=== PATIENT | female | born 1965 | race Caucasian/White ===

== ENCOUNTER 2020-08-23 08:41 | Emergency (ER) | payer OTHER ==
[2020-08-23 08:50] VITALS: BP 142/88; PULSE 89
--- NOTE | 2020-08-23 08:57 | EDM.PDOC ---
ED HPI GENERAL MEDICAL PROBLEM - General Chief Complaint: Chest Pain Stated Complaint: CHEST PAIN Time Seen by Provider: 08/23/20 08:53 Source of Information: Reports: Patient History Limitations: Reports: No Limitations - History of Present Illness INITIAL COMMENTS - FREE TEXT/NARRATIVE: 54-year-old female presents to the ED complaining of central chest pain which is retrosternal and high up in the sternum. No associated burping or belching or awareness of recent reflux. She is a never smoker. Denies cough or sputum production. She had COVID-19 illness back in December 2019. Pain started this morning after getting ready for work and has been pretty persistent. She rates it as 6 out of 10. It is perhaps slightly worse with deep breathing. She has had no chest surgery. She has had previous cholecystectomy carried out. Denies fever chills nausea or vomiting. Onset: Today, Sudden Onset Date: 08/23/20 Onset Time: 07:45 Duration: Minutes:, Constant Location: Reports: Chest (Central upper retrosternal chest discomfort with no radiation to the neck throat or back.) Quality: Reports: Ache, Pressure Severity: Moderate Improves with: Reports: None (Etc. 10) Worsens with: Reports: None Context: Denies: Activity, Exercise, Lifting, Sick Contact, Trauma, Other Associated Symptoms: Reports: Chest Pain. Denies: No Other Symptoms, Confusion (See history of present illness), Cough, cough w sputum, Diaphoresis, Fever/Chills, Headaches, Loss of Appetite, Malaise, Nausea/Vomiting, Rash, Seizure, Shortness of Breath, Syncope, Weakness Middle Chest Pain Score (Numeric/FACES): 6 - Related Data Allergies Allergy/AdvReac Type Severity Reaction Status Date / Time cefixime [From Suprax] Allergy Hives Verified 06/04/16 07:38 ciprofloxacin [From Cipro] Allergy Hives Verified 06/04/16 07:38 Home Meds: Home Meds Levothyroxine [Synthroid] 100 mcg PO DAILY 06/03/16 [History] Cetirizine HCl [Zyrtec] 10 mg PO DAILY PRN 08/23/20 [History] ClonazePAM [KlonoPIN] 0.5 mg PO BEDTIME 08/23/20 [History] Escitalopram Oxalate [Lexapro] 15 mg PO DAILY 08/23/20 [History] Potassium Chloride 10 meq PO DAILY 08/23/20 [History] Venlafaxine [Venlafaxine HCl ER] 150 mg PO DAILY 08/23/20 [History] hydrOXYzine pamoate [Hydroxyzine Pamoate] 25 - 50 mg PO BEDTIME PRN 08/23/20 [History] hydroCHLOROthiazide [Hydrochlorothiazide] 25 mg PO BEDTIME 08/23/20 [History] Past Medical History HEENT History: Reports: Other (See Below) Other HEENT History: TMJ Cardiovascular History: Reports: None Respiratory History: Reports: None Gastrointestinal History: Reports: Inflammatory Bowel Disease Genitourinary History: Reports: None Other Musculoskeletal History: Left ankle fracture Neurological History: Reports: Headaches, Chronic Psychiatric History: Reports: Anxiety, Depression Endocrine/Metabolic History: Reports: Hypothyroidism Hematologic History: Reports: None Immunologic History: Reports: None Oncologic (Cancer) History: Reports: None - Past Surgical History Head Surgeries/Procedures: Reports: None HEENT Surgical History: Reports: None Cardiovascular Surgical History: Reports: None Respiratory Surgical History: Reports: None GI Surgical History: Reports: Cholecystectomy, Colonoscopy Female Surgical History: Reports: None Other Musculoskeletal Surgeries/Procedures:: ORIF Left ankle, Hardware removal left ankle Social & Family History - Living Situation & Occupation Occupation: Employed ED ROS GENERAL - Review of Systems Review Of Systems: See Below Constitutional: Denies: Fever, Chills, Malaise, Weakness, Fatigue, Decreased Appetite, Weight Loss HEENT: Reports: Glasses Respiratory: Reports: No Symptoms Cardiovascular: Reports: Chest Pain, Blood Pressure Problem. Denies: Claudication, Dyspnea on Exertion, Edema, Lightheadedness, Orthopnea, Palpitations Endocrine: Reports: No Symptoms, Fatigue, High Glucose, Low Glucose GI/Abdominal: Reports: No Symptoms, Other (Occasional reflux treated with Tums or Rolaids.) : Reports: No Symptoms Musculoskeletal: Reports: No Symptoms Skin: Reports: No Symptoms Neurological: Reports: No Symptoms Psychiatric: Reports: No Symptoms Hematologic/Lymphatic: Reports: No Symptoms Immunologic: Reports: No Symptoms ED EXAM, GENERAL - Physical Exam Exam: See Below Exam Limited By: No Limitations General Appearance: Alert, WD/WN, No Apparent Distress, Other (Temperature is 36.6 degrees. She does not feel warm to palpation. Heart rate is 89 and sinus. Respiratory is 18 with O2 sats of 98% room air BP is 142/88.) Eye Exam: Bilateral Eye: Normal Inspection, PERRL (No scleral icterus or blepharal pallor.) Throat/Mouth: Normal Inspection, Normal Lips, Normal Oropharynx Head: Atraumatic, Normocephalic Neck: Normal Inspection, Supple, Non-Tender, Full Range of Motion. No: Carotid Bruit, Lymphadenopathy (L), Lymphadenopathy (R) Respiratory/Chest: No Respiratory Distress, Lungs Clear, Normal Breath Sounds, No Accessory Muscle Use Cardiovascular: Normal Peripheral Pulses, Regular Rate, Rhythm, No Edema, No Gallop, No Murmur, No Rub Peripheral Pulses: 3+: Carotid (L), Carotid (R), Posterior Tibial (L), Posterior Tibial (R), Dorsalis Pedis (L), Dorsalis Pedis (R) GI/Abdominal: Normal Bowel Sounds, Soft, Non-Tender, No Organomegaly, No Mass, Pelvis Stable, Other (Previous laparoscopic cholecystectomy.) Back Exam: Normal Inspection, Full Range of Motion. No: CVA Tenderness (L), CVA Tenderness (R) Extremities: Normal Inspection, Normal Range of Motion, Non-Tender, No Pedal Edema Neurological: Alert, Oriented, CN II-XII Intact, Normal Cognition, Normal Gait Psychiatric: Normal Affect, Normal Mood Skin Exam: Warm, Dry, Intact, Normal Color, No Rash #1 Interpretation EKG Date: 08/23/20 Time: 08:47 Rhythm: NSR Rate (Beats/Min): 84 Sawyer: LAD-Left Sawyer Deviation (-50 degrees) P-Wave: Present QRS: Other (Decreased voltage in both limb and precordial leads. There is a near Q waves in lead III and Q-wave in aVF. Consider old inferior wall myocardial infarction) ST-T: Other (T wave flattening lead III nonspecific) QT: Prolonged (Mildly prolonged) EKG Interpretation Comments: Abnormal ECG with no signs of acute ischemia. Course - Vital Signs Last Recorded V/S: Last Vital Signs Temp 36.6 C 08/23/20 08:46 Pulse 89 08/23/20 08:46 Resp 18 08/23/20 08:46 BP 142/88 H 08/23/20 08:46 Pulse Ox 98 08/23/20 08:46 - Orders/Labs/Meds Orders: Active Orders 24 hr Category Date Time Status Sodium Chloride 0.9% [Normal Saline] 1,000 ml Med 08/23/20 09:00 Active IV ASDIRECTED Medication Orders Sodium Chloride (Normal Saline) 1,000 mls @ 100 mls/hr IV ASDIRECTED EMELINA Last Admin: 08/23/20 09:15 Dose: 100 mls/hr Documented by: [email or web address] Labs: Laboratory Tests 08/23/20 08/23/20 08/23/20 Range/Units 08:55 08:55 08:55 WBC 6.88 (3.98-10.04) K/mm3 RBC 4.77 (3.98-5.22) M/mm3 Hgb 14.5 (11.2-15.7) gm/dl Hct 43.6 (34.1-44.9) % MCV 91.4 (79.4-94.8) fl MCH 30.4 (25.6-32.2) pg MCHC 33.3 (32.2-35.5) g/dl RDW Std Deviation 46.9 H (36.4-46.3) fL Plt Count 267 (182-369) K/mm3 MPV 10.7 (9.4-12.3) fl Neut % (Auto) 53.1 (34.0-71.1) % Lymph % (Auto) 36.8 (19.3-51.7) % [place] % (Auto) 8.9 (4.7-12.5) % Eos % (Auto) 1.0 (0.7-5.8) Baso % (Auto) 0.1 (0.1-1.2) % Neut # (Auto) 3.65 (1.56-6.13) K/mm3 Lymph # (Auto) 2.53 (1.18-3.74) K/mm3 [place] # (Auto) 0.61 H (0.24-0.36) K/mm3 Eos # (Auto) 0.07 (0.04-0.36) K/mm3 Baso # (Auto) 0.01 (0.01-0.08) K/mm3 PT 10.3 (9.7-12.0) SECONDS INR 0.96 APTT 25.6 (21.7-31.4) SECONDS D-Dimer, Quantitative (0.19-0.50) mg/L Sodium 138 (136-145) mEq/L Potassium 4.1 (3.5-5.1) mEq/L Chloride 100 (98-107) mEq/L Carbon Dioxide 29 (21-32) mEq/L Anion Gap 13.1 (5-15) BUN 22 H (7-18) mg/dL Creatinine 1.2 H (0.55-1.02) mg/dL Est Cr Clr Drug Dosing 48.23 mL/min Estimated GFR (MDRD) 47 (>60) mL/min BUN/Creatinine Ratio 18.3 H (14-18) Glucose 120 H (74-106) mg/dL Calcium 8.6 (8.5-10.1) mg/dL Magnesium 1.8 (1.8-2.4) mg/dl Total Bilirubin 0.3 (0.2-1.0) mg/dL AST 23 (15-37) U/L ALT 36 (14-59) U/L Alkaline Phosphatase 84 (46-116) U/L CK-MB (CK-2) 0.7 (0-3.6) ng/ml Troponin I < 0.017 (0.00-0.056) ng/mL C-Reactive Protein 1.0 (<1.0) mg/dL NT-Pro-B Natriuret Pep (0-125) pg/mL Total Protein 7.7 (6.4-8.2) g/dl Albumin 3.3 L (3.4-5.0) g/dl Globulin 4.4 gm/dL Albumin/Globulin Ratio 0.8 L (1-2) 08/23/20 08/23/20 Range/Units 08:55 08:55 WBC (3.98-10.04) K/mm3 RBC (3.98-5.22) M/mm3 Hgb (11.2-15.7) gm/dl Hct (34.1-44.9) % MCV (79.4-94.8) fl MCH (25.6-32.2) pg MCHC (32.2-35.5) g/dl RDW Std Deviation (36.4-46.3) fL Plt Count (182-369) K/mm3 MPV (9.4-12.3) fl Neut % (Auto) (34.0-71.1) % Lymph % (Auto) (19.3-51.7) % [place] % (Auto) (4.7-12.5) % Eos % (Auto) (0.7-5.8) Baso % (Auto) (0.1-1.2) % Neut # (Auto) (1.56-6.13) K/mm3 Lymph # (Auto) (1.18-3.74) K/mm3 [place] # (Auto) (0.24-0.36) K/mm3 Eos # (Auto) (0.04-0.36) K/mm3 Baso # (Auto) (0.01-0.08) K/mm3 PT (9.7-12.0) SECONDS INR APTT (21.7-31.4) SECONDS D-Dimer, Quantitative 0.33 (0.19-0.50) mg/L Sodium (136-145) mEq/L Potassium (3.5-5.1) mEq/L Chloride (98-107) mEq/L Carbon Dioxide (21-32) mEq/L Anion Gap (5-15) BUN (7-18) mg/dL Creatinine (0.55-1.02) mg/dL Est Cr Clr Drug Dosing mL/min Estimated GFR (MDRD) (>60) mL/min BUN/Creatinine Ratio (14-18) Glucose (74-106) mg/dL Calcium (8.5-10.1) mg/dL Magnesium (1.8-2.4) mg/dl Total Bilirubin (0.2-1.0) mg/dL AST (15-37) U/L ALT (14-59) U/L Alkaline Phosphatase (46-116) U/L CK-MB (CK-2) (0-3.6) ng/ml Troponin I (0.00-0.056) ng/mL C-Reactive Protein (<1.0) mg/dL NT-Pro-B Natriuret Pep 56 (0-125) pg/mL Total Protein (6.4-8.2) g/dl Albumin (3.4-5.0) g/dl Globulin gm/dL Albumin/Globulin Ratio (1-2) Meds: Medications Generic Name Dose Route Start Last Admin Trade Name Freq PRN Reason Stop Dose Admin Sodium Chloride 1,000 mls @ 100 mls/hr 08/23/20 09:00 08/23/20 09:15 Normal Saline IV 100 mls/hr ASDIRECTED EMELINA Administration Discontinued Medications Generic Name Dose Route Start Last Admin Trade Name Sesar PRN Reason Stop Dose Admin Al Hydroxide/Mg Hydroxide 30 ml 08/23/20 09:06 08/23/20 09:21 Aluminum Hydroxide/Magnesium Hydroxide/Simethicone Susp 30 Ml Cup PO 08/23/20 09:07 30 ml ONETIME ONE Administration Aspirin 324 mg 08/23/20 09:05 08/23/20 09:15 Aspirin 81 Mg Tab.Chew PO 08/23/20 09:06 324 mg ONETIME ONE Administration Dicyclomine HCl 20 mg 08/23/20 09:10 08/23/20 09:21 Dicyclomine 10 Mg Cap PO 08/23/20 09:11 20 mg ONETIME ONE Administration Nitroglycerin/Dextrose 25 mg in 250 mls @ 6 mls/hr 08/23/20 09:15 08/23/20 09:14 Nitroglycerin 25 Mg/D5w 250 Ml IV 10 mcg/min ASDIRECTED EMELINA 6 mls/hr Administration 10 MCG/MIN - Radiology Interpretation Free Text/Narrative:: 54-year-old female presents to the ED with a central chest pressure discomfort that she has had for about an hour and a half. No associated cough sputum production. It is perhaps made slightly worse by deep breathing. No recent chest wall injury. I could not elicit any chest wall pain on examination in the midclavicular line in the ribs. Air entry was equal bilaterally. Heart sounds are normal ECG does not show any signs of acute ischemic change. Plan she will have a chest x-ray routine lab including cardiac markers and a D-dimer . IV will be normal saline 100 mils per hour. She'll be started nitroglycerin drip at 10 mcg/min that she rates the pain a 6 out of 10. Given 4 baby aspirin chewed. - Re-Assessments/Exams Free Text/Narrative Re-Assessment/Exam: 08/23/20 09:53 portable chest x-ray is within normal limits. No pulmonary infiltrates cardiac silhouette within normal limits. Perhaps very slightly tortuous thoracic aorta. 08/23/20 09:54 White count is normal at 6.88. Differential shows 53% neutrophils on the auto differential. Hemoglobin 14.5 with hematocrit of 43.6 platelet count 267,000 of 0.96 PTT is 25.6 D-dimer is 0.33. BNP is 56. Patient reports her chest pain is completely gone. 08/23/20 10:27 Sodium is 138 with a potassium of 4.1. Chloride 100 with a bicarb of 29. Anion gap is 13.1. BUN is 22 with a creatinine of 1.2. GFR is 47. BUN/creatinine ratio is slightly elevated at 18.3. Glucose is 120 with a calcium of 8.6 magnesium is 1.8 liver function is normal. CK-MB fraction is 0.7 troponin I is less than 0.017. C-reactive protein is 1.0 total protein 7.7 with albumin fraction of 3.3. I am going to turn her nitroglycerin intravenous off at this time and see if the chest pain returns. 08/23/20 11:00 she has been off her nitroglycerin drip for 25 minutes and has no further chest pain. She will therefore be discharged to home. 08/23/20 11:14 John up and down the halls she did experience a slight pressure up in the sternal notch area of her upper sternum. I still believe this is secondary to reflux disease. Advised her to purchase some Pepcid and take 1 now and 1 tonight and then 1 every night at bedtime for 10 days. Tums and Rolaids to have on hand. She will of course return to the ED if she has any further exacerbation or the pain is constant. Departure - Departure Time of Disposition: 11:01 Disposition: Home, Self-Care 01 Reason for Transfer *Q: Other Condition: Good Clinical Impression: Non-cardiac chest pain Instructions: Nonspecific Chest Pain, Adult Referrals: Sujata Dean MD [Primary Care Provider] - Forms: ED Department Discharge Additional Instructions: Priyank this morning in regards to central chest discomfort that has been present since she awoke this morning around 0630 hrs. It failed to dissipate and therefore you elected to come to the ED for evaluation. ECG tracing was normal. Chest x-ray was normal as well. Cardiac markers i.e. CK-MB fraction is normal and the troponin I is less than 0.017. There is no evidence of heart related illness. You were treated with Maalox nitroglycerin infusion and aspirin. You did fine after the nitroglycerin was discontinued. I suspect the most likely cause of transient chest pain is esophageal spasm most likely due to occult gastroesophageal reflux which occurs often when we are sleeping and we do not necessarily have to have any associated heartburn. I would suggest a trial of Pepcid 20 mg once daily every night at bedtime for the next 10 days to allow any inflammation of the food pipe to heal. Of course of the chest pain returns and is not going away in an hour please return to the ED. Sepsis Event Note (ED) - Evaluation Sepsis Screening Result: No Definite Risk - Focused Exam Vital Signs: Vital Signs Temp Pulse Resp BP Pulse Ox 08/23/20 08:46 36.6 C 89 18 142/88 H 98 - My Orders Last 24 Hours: My Active Orders 08/23/20 09:00 Sodium Chloride 0.9% [Normal Saline] 1,000 ml IV ASDIRECTED - Assessment/Plan Last 24 Hours: My Active Orders 08/23/20 09:00 Sodium Chloride 0.9% [Normal Saline] 1,000 ml IV ASDIRECTED
[2020-08-23] MEDS ORDERED: Sodium Chloride 0.9% 1,000 ML IV SCH (09:00)
[2020-08-23] MEDS ORDERED: Aspirin 81 MG Tab.Chew PO ONE (09:05)
[2020-08-23] MEDS ORDERED: Aluminum Hydroxide/Magnesium Hydroxide/Simethicone Susp 30 ML Cup PO ONE (09:06)
[2020-08-23] MEDS ORDERED: Dicyclomine 10 MG Cap PO ONE (09:10)
[2020-08-23] MEDS ORDERED: Nitroglycerin/D5W 25 MG/250 ML BOTTLE IV SCH (09:15)
--- NOTE | 2020-08-23 10:50 | CR ---
Chest: Portable view of the chest was obtained. Comparison: No previous study. Heart size and mediastinum are normal. Lungs are clear with no acute parenchymal change. Bony structures are grossly intact. Impression: 1. Nothing acute is appreciated on portable chest x-ray. Diagnostic code #1
== END 2020-08-23 11:20 | disposition home or self-care (01) ==
LOC: JD.ED 08:41
DX: R07.89 Other chest pain (principal); E03.9 Hypothyroidism, unspecified; Z79.899 Other long term (current) drug therapy; Z88.1 Allergy status to other antibiotic agents
CPT/HCPCS: 36415; 71045; 80053; 82553; 83735; 83880; 84484; 85025; 85379; 85610; 85730; 86140; 96365; 96366; 99285; A9270; J3490; J7030; 93010; 99284